=== PATIENT | female | born 1970 | race Caucasian/White ===

== ENCOUNTER 2018-04-14 14:25 | Emergency (ER) | payer BC ==
[2018-04-14 14:52] VITALS: RESP 18; BMI 18.1
--- NOTE | 2018-04-14 15:09 | C.PDOC ---
History Of Present Illness 47 y/o female presents to ED with c/o low back pain with occasional radiation to leg developed 2 days ago after lifting heavy rug. Patient sent to ED for further evaluation and denies direct injury, saddle anesthesia, dysuria, hematuria, numbness, weakness or any other complaints at this time. Time Seen by Provider: 04/14/18 14:46 Chief Complaint (Nursing): Back Pain History Per: Patient History/Exam Limitations: no limitations Onset/Duration Of Symptoms: Days Current Symptoms Are (Timing): Still Present Quality Of Discomfort: "Pain" Past Medical History Reviewed: Historical Data, Nursing Documentation, Vital Signs Vital Signs: Last Vital Signs Temp 97.4 F L 04/14/18 16:19 Pulse 54 L 04/14/18 16:19 Resp 18 04/14/18 16:19 BP 105/67 04/14/18 16:19 Pulse Ox 98 04/14/18 16:19 - Medical History PMH: No Chronic Diseases Surgical History: No Surg Hx Family History: States: No Known Family Hx - Social History Hx Alcohol Use: No Hx Substance Use: No - Immunization History Hx Tetanus Toxoid Vaccination: No Hx Influenza Vaccination: No Hx Pneumococcal Vaccination: No Review Of Systems Constitutional: Negative for: Fever, Chills Genitourinary: Negative for: Dysuria, Hematuria Musculoskeletal: Positive for: Back Pain Neurological: Negative for: Weakness, Numbness Physical Exam - Physical Exam Appears: Non-toxic, No Acute Distress Skin: Warm, Dry, No Rash Head: Atraumatic, Normacephalic Eye(s): bilateral: Normal Inspection Oral Mucosa: Moist Neck: No Midline Cervical Tenderness, No Step Off Deformity, Supple Back: No CVA Tenderness, Paraspinal Tenderness, Other (paralumbar tenderness) Neurological/Psych: Oriented x3, Normal Speech, Normal Cognition, Normal Motor, Normal Sensation ED Course And Treatment O2 Sat by Pulse Oximetry: 99 (RA) Pulse Ox Interpretation: Normal Medical Decision Making Medical Decision Making: xr neg pain improved ambulatory steady gait. updated pmd dr jordan. agrees with outpt fu no saddle anestehsia, advise outpt mri. Disposition - Disposition Referrals: Jameel Jones MD [Non-Staff] - Disposition: HOME/ ROUTINE Disposition Time: 04:00 Condition: STABLE Additional Instructions: follow up with specailist. you may need additional testing as an outpatient. return to er with worsening symptoms or concerns. Prescriptions: Cyclobenzaprine [Cyclobenzaprine HCl] 10 mg PO DAILY PRN #10 tab PRN Reason: Muscle Spasm Naproxen [Naprosyn] 500 mg PO BID PRN #14 tab PRN Reason: Pain, Mild (1-3) Instructions: Low Back Pain in Adults Forms: [facility] (British) - Clinical Impression Clinical Impression: Low back pain, Low back strain - Scribe Statement The provider has reviewed the documentation as recorded by the Jana Riggs All medical record entries made by the Jana were at my direction and personally dictated by me. I have reviewed the chart and agree that the record accurately reflects my personal performance of the history, physical exam, medical decision making, and the department course for this patient. I have also personally directed, reviewed, and agree with the discharge instructions and disposition.
--- NOTE | 2018-04-14 16:11 | RAD ---
Date of service: 04/14/2018 PROCEDURE: Radiographs of the Lumbar Spine. HISTORY: pain COMPARISON: No prior. FINDINGS: BONES: Normal alignment. No listhesis. No fracture. Mild multilevel endplate depressions. DISC SPACES: Unremarkable. OTHER FINDINGS: None. IMPRESSION: No acute fracture. Multilevel degenerative changes.
[2018-04-14 16:21] VITALS: BP 105/67; PULSE 54; TEMP 97.4
[2018-04-14 16:48] VITALS: O2SAT 99
== END 2018-04-14 16:43 | disposition home or self-care (01) ==
LOC: C.ER 14:25
DX: S39.012A Strain of muscle, fascia and tendon of lower back, initial encounter (principal); X50.0XXA Overexertion from strenuous movement or load, initial encounter; Y92.89 Other specified places as the place of occurrence of the external cause
CPT/HCPCS: 72100; 96372; 99283; J1885